=== PATIENT | male | born 1990 | race African-American/Black ===

== ENCOUNTER 2020-06-28 16:15 | Emergency (ER) | payer MEDICAID ==
[~2020-06-28] VITALS: Ht 177.8 cm; Wt 89.0 kg
[2020-06-28 16:37] VITALS: BP 136/80
== END 2020-06-28 20:00 | disposition left against medical advice (07) ==
LOC: ER 16:15
DX: Z53.21 Procedure and treatment not carried out due to patient leaving prior to being seen by health care provider (principal)

== ENCOUNTER 2022-06-30 12:37 | Emergency (ER) | payer MEDICAID | END 2022-06-30 13:41 | disposition left against medical advice (07) | LOC: ER 12:37 | DX: Z53.21 Procedure and treatment not carried out due to patient leaving prior to being seen by health care provider (principal) ==